=== PATIENT | female | born 1950 | race Caucasian/White ===

== ENCOUNTER 2019-10-09 10:27 | Outpatient (RCR) | payer MEDICARE, OTHER, SELFPAY | END 2019-10-31 00:01 | LOC: LAB 10:27 | PROVIDERS: Family Provider Internal Medicine; Visit Provider Nurse Practitioner Family | DX: D64.9 Anemia, unspecified (principal); E87.6 Hypokalemia; E11.8 Type 2 diabetes mellitus with unspecified complications | CPT/HCPCS: 36415; 80048; 83036; 85025 ==

== ENCOUNTER 2020-07-13 03:04 | Inpatient (IN) | payer MEDICARE, MEDICAID, SELFPAY ==
[2020-07-13] VITALS (9 sets, daily range): BP systolic 126–186; BP diastolic 63–96; PULSE 57–89; RESP 16–20; TEMP 36.6–37; O2SAT 94–99; BMI 26.9
--- NOTE | 2020-07-13 03:09 | CTR_ITS ---
PROCEDURE INFORMATION: Exam: CT Head Without Contrast Exam date and time: 07/13/2020 3:44 AM Age: 70 years old Clinical indication: Altered mental status/memory loss; Confusion or disorientation TECHNIQUE: Imaging protocol: Computed tomography of the head without contrast. Radiation optimization: All CT scans at this facility use at least one of these dose optimization techniques: automated exposure control; mA and/or kV adjustment per patient size (includes targeted exams where dose is matched to clinical indication); or iterative reconstruction. COMPARISON: CT head wo con* [id number] 06/04/2019 2:54 PM RADIATION DOSE METRICS: Total DLP (mGy-cm): 1687.36 FINDINGS: Brain: Continued patchy low density in the cerebral white matter bilaterally consistent with chronic ischemic changes. 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 Old lacunar infarct in the area of the posterior right caudate nucleus evident since previously. Interval appearance of the old lacunar infarct in the left julia. Continued presence of 2 small foci of encephalomalacia in the left occipital lobe. Very small old lacunar infarct in the right cerebellar hemisphere still suspected despite motion artifacts through this area. Questionable interval maturation of an old lacunar infarct in the right thalamus and appearance of a very small old lacunar infarct in the left thalamus. No suggestion of edema in the brain. Continued enlargement of the supratentorial subarachnoid spaces. Still no apparent acute hemorrhage. Ventricles: Continued enlargement of the 3rd and lateral ventricles. Fourth ventricle still within normal limits in size. Bones/joints: Still no skull fracture. Sinuses: Slight mucosal thickening in a few paranasal sinuses. Interval appearance of the possible very small mucous retention cyst in the right frontoethmoidal recess. Still no air-fluid levels. Mastoid air cells: No interval mastoid disease. Vasculature: Prominent bilateral ICA calcifications still present. Soft tissues: Unremarkable. CT/CT head wo con* [id number] IMPRESSION: 1. No apparent acute disease. Interval appearance of some of the numerous foci of old ischemia. Cerebral atrophy again evident. 2. Prominent bilateral ICA calcifications again evident. Other findings detailed above. Radiation Dose CTDIVOL = (mGy): DLP = 1687.36 (mGy-cm)
--- NOTE | 2020-07-13 03:09 | XRR_ITS ---
PROCEDURE INFORMATION: Exam: XR Chest, 1 View Exam date and time: 07/13/2020 3:41 AM Age: 70 years old Clinical indication: Other: Altered mental status TECHNIQUE: Imaging protocol: XR of the chest Views: 1 view. COMPARISON: CR Chest 1 [place] [id number] 06/04/2019 2:31 PM FINDINGS: Lungs: Interval area of increased density behind the elevated right hemidiaphragm suggesting right lower lobe atelectasis. No apparent consolidation. Pleural space: Still no pneumothorax or obvious pleural fluid. Heart/Mediastinum: Still no cardiomegaly. 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 Vasculature: Continued aortic elongation. Diaphragm: Interval worsening of the elevation of the right hemidiaphragm. Bones/joints: Median sternotomy again evident. Diffuse osteopenia still conceivable. Old left rib fractures still likely. No visible acute fracture. XR/XR chest 1V portable [id number] IMPRESSION: 1. Interval worsening of the right hemidiaphragm elevation probably related to the interval right basilar density suggestive of atelectasis. No significant change elsewhere. 2. 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 Other findings detailed above.
--- NOTE | 2020-07-13 03:10 | ECG_ITS ---
[facility] Test Date: 2020-07-13 Pat Name: Alida Parker Department: Room: Gender: Female Supervisory Historian: : 1950 Requested By: Stacey Brown Order Number: [id number] Webster MD: Mojgan Ferrell M.D. Measurements Intervals [place] Rate: 90 P: 54 VA: 179 QRS: 31 QRSD: 85 T: 110 QT: 378 QTc: 464 Interpretive Statements SINUS RHYTHM NONSPECIFIC ST & T-WAVE ABNORMALITY Compared to ECG 06/04/2019 20:14:38 No significant changes Electronically Signed On 07-13-2020 16:21:06 CDT by Mojgan Ferrell M.D. [id number]
--- NOTE | 2020-07-13 03:16 | ED_ITS ---
Documented by User: Stacey Tatum 07/13/20 22:33 HPI - Altered Mental Status General: Chief Complaint: Altered Mental Status Stated Complaint: AMS Time Seen by Provider: 07/13/20 03:04 Source: EMS Mode of arrival: EMS Limitations: altered mental status History of Present Illness: HPI narrative: Mrs. Parker is a nice 70-year-old female who comes in via EMS with report of altered mental status. EMS relates that the patient has had a gradual decline in her mentation throughout the day and then approximately 30 minutes prior to arrival here she had an episode where she was nearly unresponsive for about 30 minutes. Since that time the patient is gradually improved to the point she is answering some questions at this time but appears confused. The long term nurse reports this is a change from her baseline. The patient denies any complaints of pain or illness at this time. Review of Systems General: Reports: ROS unobtainable due to mental status [facility] ED PFSH: Medical History (Updated 07/13/20 @ 15:29 by Bladimir Gay MD) Alzheimers disease Arthritis ASHD (arteriosclerotic heart disease) CAD (coronary artery disease) Diabetic neuropathy GERD (gastroesophageal reflux disease) History of stroke HTN (hypertension) with goal to be determined Hyperlipidemia Intracranial vascular disease PAD (peripheral artery disease) Sleep apnea Vascular dementia Surgical History (Updated 07/13/20 @ 15:19 by Bladimir Gay MD) S/P CABG (coronary artery bypass graft) S/P cholecystectomy S/P hysterectomy Family History Other Diabetes Social History Smoking and tobacco status: former smoker Physical Exam Const: COMMON NORMALS: no acute distress and alert GENERAL APPEARANCE: cooperative and lethargic ORIENTATION/CONSCIOUSNESS: Yes lethargic HENMT: COMMON NORMALS: normocephalic, atraumatic, external ears normal, EAC's normal and Normal external nose present HEAD & SCALP: normal to inspection, normocephalic and atraumatic FACE & SINUS: normal facial exam and face symmetric NOSE: Normal external nose present and Normal nares present EXTERNAL EAR: Yes external ears normal EXTERNAL AUDITORY CANAL: EAC's normal MOUTH: Normal oral and palatal mucosa present, lip normal and tongue normal Eye: COMMON NORMALS: Equal, round and reactive pupils present and conjunctivae normal GENERAL EYE: appearance normal, both eyes and all related structures ALIGNMENT: Yes alignment normal PERIORBITAL: periorbital findings normal EYELID: eyelids normal CONJUNCTIVA: Yes conjunctivae normal SCLERA: sclerae normal PUPIL: Yes Equal, round and reactive pupils present Neck/C-Spine: COMMON NORMALS: full ROM, no lymphadenopathy, supple, no meningeal signs and no JVD GENERAL: Yes normal visual inspection and Yes trachea midline Chest: COMMONS NORMALS: normal inspection of the chest and normal palpation of entire chest wall Resp: COMMON NORMALS: normal respiratory effort, No retractions, No use of accessory muscles and clear to auscultation bilaterally EFFORT & INSPECTION: Yes able to speak in complete sentences and Yes symmetric chest movement AUSCULTATION: clear to auscultation bilaterally, no crackles, no rales, no rhonchi and no wheezes Cardio: COMMON NORMALS: no JVD, regular rate, regular rhythm, S1 normal heart sound present and S2 normal heart sound present RATE: regular rate RHYTHM: regular rhythm HEART SOUNDS: S1 normal heart sound present, S2 normal heart sound present, no click, no gallops, no murmurs and no rubs GI: COMMON NORMALS: Soft to palpation and No hepatosplenomegaly present PALPATION: Yes Soft to palpation, No Tenderness to palpation present (GI), No Guarding due to palpation present (GI), No Rigid due to palpation, Yes No hepatosplenomegaly present, No Hernia present, No Palpable mass present and No Pulsatile mass present : COMMON NORMALS: Yes no CVA tenderness BLADDER/KIDNEY EXAM: Yes no CVA tenderness EXTERNAL FEMALE EXAM: No Hernia present Back/Pelvis: COMMON NORMALS: no CVA tenderness, thoracic and lumbar spine normal to inspection, no thoracic nor lumbar tenderness and thoraco-lumbar ROM normal Extremity: COMMON NORMALS: normal to inspection, full ROM, capillary refill normal, no joint enlargement, no clubbing, cyanosis or edema and no calf tenderness Neuro: KAVON COMA SCALE: document GCS findings Kavon coma scale eye opening: Spontaneous Kavon coma scale verbal response: Confused Kavon coma scale motor response: Obey commands Kavon coma scale total score: 14 COMMON NORMALS: CN's II-XII intact bilaterally, moves all extremities, no focal motor deficits and no sensory deficits noted SENSORIUM/ORIENTATION: Yes alert and Yes lethargic MENINGEAL SIGNS: Yes no meningeal signs Skin: COMMON NORMALS: no rashes or lesions noted, turgor normal, no jaundice, no petechiae and no mottling GENERAL SKIN EXAM: no rashes or lesions noted and turgor normal Course Vital Signs: Vital signs: Vital Signs Temperature 97.8 F 07/16/20 04:00 Pulse Rate 84 07/16/20 04:00 Respiratory Rate 21 H 07/16/20 04:00 Blood Pressure 193/83 07/16/20 05:57 Pulse Oximetry 97 07/16/20 04:00 MDM - Altered Mental Status Lab Data: Attestation: I reviewed the patient's lab results. Labs: Lab Results 07/13/20 07/13/20 07/13/20 Range/Units 03:00 03:00 03:00 WBC 21.8 H (4.0-10.0) 10^3/ uL RBC 4.60 (4.1-5.3) 10^6/u L Hgb 12.8 (11.5-15.3) g/dL Hct 41.7 (37.0-47.0) % MCV 90.7 (81-99) fL MCH 27.8 L (28.0-34.0) pg MCHC 30.7 (30.0-36.0) g/dL RDW 13.6 (12.1-15.1) % Plt Count 174 (130-400) 10^3/c mm MPV 10.8 H (7.4-10.4) fL Neut % (Auto) 85.7 % Lymph % (Auto) 9.0 % Dewitt % (Auto) 4.4 % Eos % (Auto) 0.0 % Baso % (Auto) 0.3 % Neut # (Auto) 18.69 H (1.8-7.7) 10^3/u L Lymph # (Auto) 2.0 (0.8-4.8) 10^3/u L Dewitt # (Auto) 1.0 H (0.2-0.9) 10^3/u L Eos # (Auto) 0.0 (0.0-0.8) 10^3/u L Baso # (Auto) 0.1 (0.0-0.1) 10^3/u L Nucleated RBC % (a uto) 0 % Nucleated RBCs # 0.0 /100WBC PT 13.20 (12.1-14.9) SECO NDS INR 0.97 (0.8-1.2) Specimen Type Sample Site ABG pH (7.35-7.45) ABG pCO2 (35-45) mmHg ABG pO2 (80.0-100.0) mmH g ABG HCO3 (22-26) mmol/L ABG Base Excess (-2.0-2.0) mmol/ L Goldy Test Hematocrit (37-47) % O2 Delivery Device FiO2 % Traveling Construction Superintendent ID Sodium 139 (136-145) mmol/L Potassium 5.7 H (3.5-5.1) mmol/L Chloride 104 (98-107) mmol/L Carbon Dioxide 25 (22-29) mmol/L Anion Gap 15.7 (5-19) BUN 36 H (8-23) mg/dL Creatinine 1.6 H (0.5-0.9) mg/dL GFR Calculation 31.9 L (90-130) mL/min Glucose 199 H (65-115) mg/dL Calculated Osmolal ity 291 (285-295) mOsm/k g Lactic Acid (0.5-2.2) mmol/L Calcium 9.5 (8.5-10.5) mg/dL Magnesium 2.0 (1.7-2.3) mg/dL Total Bilirubin 0.4 (0.15-1.2) mg/dL AST 11 (0-32) U/L ALT 8 (0-33) U/L Alkaline Phosphata se 69 (35-105) IU/L Troponin T Baselin e (0-10) ng/L NT-Pro-B Natriuret Pep 3578 H (0-125) pg/mL Total Protein 6.3 L (6.6-8.7) g/dL Albumin 3.4 L (3.5-5.2) g/dL Globulin 2.9 (1.3-4.6) g/dL Lipase 15 (13-60) U/L Urine Color (Yellow) Urine Appearance (CLEAR) Urine pH (5-7) Ur Specific Gravit y (1.005-1.030) Urine Protein (Negative) Urine Glucose (UA) (Normal) Urine Ketones (Negative) Urine Blood (Negative) Urine Nitrate (Negative) Urine Bilirubin (Negative) Urine Urobilinogen (Negative) mg/dL Ur Leukocyte Guillermina ase (Negative) Urine RBC (0-2) /hpf Urine WBC (0-5) /hpf Ur Squamous Epith Cells (0-5) /hpf Amorphous Sediment Urine Bacteria (NONE) /hpf Serum Ketones Negative (Negative) Influenza Type A A g (Negative) Influenza Type B A g (Negative) SARS-CoV-2 Ag (Rap id) (Negative) 07/13/20 07/13/20 07/13/20 Range/Units 03:00 03:25 03:41 WBC (4.0-10.0) 10^3/ uL RBC (4.1-5.3) 10^6/u L Hgb (11.5-15.3) g/dL Hct (37.0-47.0) % MCV (81-99) fL MCH (28.0-34.0) pg MCHC (30.0-36.0) g/dL RDW (12.1-15.1) % Plt Count (130-400) 10^3/c mm MPV (7.4-10.4) fL Neut % (Auto) % Lymph % (Auto) % Dewitt % (Auto) % Eos % (Auto) % Baso % (Auto) % Neut # (Auto) (1.8-7.7) 10^3/u L Lymph # (Auto) (0.8-4.8) 10^3/u L Dewitt # (Auto) (0.2-0.9) 10^3/u L Eos # (Auto) (0.0-0.8) 10^3/u L Baso # (Auto) (0.0-0.1) 10^3/u L Nucleated RBC % (a uto) % Nucleated RBCs # /100WBC PT (12.1-14.9) SECO NDS INR (0.8-1.2) Specimen Type Arterial Sample Site Brachial, left ABG pH 7.41 (7.35-7.45) ABG pCO2 43.6 (35-45) mmHg ABG pO2 69.7 L (80.0-100.0) mmH g ABG HCO3 27.6 H (22-26) mmol/L ABG Base Excess 2.4 H (-2.0-2.0) mmol/ L Goldy Test Pos Hematocrit 41.4 (37-47) % O2 Delivery Device None FiO2 21.0 % Traveling Construction Superintendent ID [id number] Sodium (136-145) mmol/L Potassium (3.5-5.1) mmol/L Chloride (98-107) mmol/L Carbon Dioxide (22-29) mmol/L Anion Gap (5-19) BUN (8-23) mg/dL Creatinine (0.5-0.9) mg/dL GFR Calculation (90-130) mL/min Glucose (65-115) mg/dL Calculated Osmolal ity (285-295) mOsm/k g Lactic Acid (0.5-2.2) mmol/L Calcium (8.5-10.5) mg/dL Magnesium (1.7-2.3) mg/dL Total Bilirubin (0.15-1.2) mg/dL AST (0-32) U/L ALT (0-33) U/L Alkaline Phosphata se (35-105) IU/L Troponin T Baselin e 34 H (0-10) ng/L NT-Pro-B Natriuret Pep (0-125) pg/mL Total Protein (6.6-8.7) g/dL Albumin (3.5-5.2) g/dL Globulin (1.3-4.6) g/dL Lipase (13-60) U/L Urine Color (Yellow) Urine Appearance (CLEAR) Urine pH (5-7) Ur Specific Gravit y (1.005-1.030) Urine Protein (Negative) Urine Glucose (UA) (Normal) Urine Ketones (Negative) Urine Blood (Negative) Urine Nitrate (Negative) Urine Bilirubin (Negative) Urine Urobilinogen (Negative) mg/dL Ur Leukocyte Guillermina ase (Negative) Urine RBC (0-2) /hpf Urine WBC (0-5) /hpf Ur Squamous Epith Cells (0-5) /hpf Amorphous Sediment Urine Bacteria (NONE) /hpf Serum Ketones (Negative) Influenza Type A A g (Negative) Influenza Type B A g (Negative) SARS-CoV-2 Ag (Rap id) Negative (Negative) 07/13/20 07/13/20 07/13/20 Range/Units 03:49 03:49 06:25 WBC (4.0-10.0) 10^3/ uL RBC (4.1-5.3) 10^6/u L Hgb (11.5-15.3) g/dL Hct (37.0-47.0) % MCV (81-99) fL MCH (28.0-34.0) pg MCHC (30.0-36.0) g/dL RDW (12.1-15.1) % Plt Count (130-400) 10^3/c mm MPV (7.4-10.4) fL Neut % (Auto) % Lymph % (Auto) % Dewitt % (Auto) % Eos % (Auto) % Baso % (Auto) % Neut # (Auto) (1.8-7.7) 10^3/u L Lymph # (Auto) (0.8-4.8) 10^3/u L Dewitt # (Auto) (0.2-0.9) 10^3/u L Eos # (Auto) (0.0-0.8) 10^3/u L Baso # (Auto) (0.0-0.1) 10^3/u L Nucleated RBC % (a uto) % Nucleated RBCs # /100WBC PT (12.1-14.9) SECO NDS INR (0.8-1.2) Specimen Type Sample Site ABG pH (7.35-7.45) ABG pCO2 (35-45) mmHg ABG pO2 (80.0-100.0) mmH g ABG HCO3 (22-26) mmol/L ABG Base Excess (-2.0-2.0) mmol/ L Goldy Test Hematocrit (37-47) % O2 Delivery Device FiO2 % Traveling Construction Superintendent ID Sodium (136-145) mmol/L Potassium (3.5-5.1) mmol/L Chloride (98-107) mmol/L Carbon Dioxide (22-29) mmol/L Anion Gap (5-19) BUN (8-23) mg/dL Creatinine (0.5-0.9) mg/dL GFR Calculation (90-130) mL/min Glucose (65-115) mg/dL Calculated Osmolal ity (285-295) mOsm/k g Lactic Acid 2.1 (0.5-2.2) mmol/L Calcium (8.5-10.5) mg/dL Magnesium (1.7-2.3) mg/dL Total Bilirubin (0.15-1.2) mg/dL AST (0-32) U/L ALT (0-33) U/L Alkaline Phosphata se (35-105) IU/L Troponin T Baselin e (0-10) ng/L NT-Pro-B Natriuret Pep (0-125) pg/mL Total Protein (6.6-8.7) g/dL Albumin (3.5-5.2) g/dL Globulin (1.3-4.6) g/dL Lipase (13-60) U/L Urine Color Straw (Yellow) Urine Appearance Cloudy (CLEAR) Urine pH 7 (5-7) Ur Specific Gravit y 1.010 (1.005-1.030) Urine Protein 1+ H (Negative) Urine Glucose (UA) Norm (Normal) Urine Ketones 1+ H (Negative) Urine Blood 3+ H (Negative) Urine Nitrate Negative (Negative) Urine Bilirubin Neg (Negative) Urine Urobilinogen Norm (Negative) mg/dL Ur Leukocyte Guillermina ase 2+ H (Negative) Urine RBC 5-10 H (0-2) /hpf Urine WBC 15-25 H (0-5) /hpf Ur Squamous Epith Cells None (0-5) /hpf Amorphous Sediment Not Reportable Urine Bacteria 3+ H (NONE) /hpf Serum Ketones (Negative) Influenza Type A A g Negative (Negative) Influenza Type B A g Negative (Negative) SARS-CoV-2 Ag (Rap id) (Negative) Imaging Data^: CXR: Attestation: I personally reviewed and interpreted this imaging study as follows: My impression: Elevated right hemidiaphragm, otherwise no acute findings. EKG Data^: EKG 1: Attestation: I personally reviewed and interpreted this EKG as follows: EKG interpretation date: 07/13/20 EKG interpretation time: 03:18 Interpretation: Normal sinus rhythm at 90 beats a minute, no blocks, normal intervals, normal axis, no acute ST-T wave changes. Discharge Plan Discharge Patient Disposition: Admitted As Inpatient Admit Provider: Bladimir Gay Clinical Impression: Cystitis, Sepsis Condition: Stable Referrals: Cindy Fisher MD [Primary Care Provider] - Discharge Date/Time: 07/13/20 08:40 Sign Out Sign Out Data: Patient Sign Out occurred on 07/13/20 at 06:43. Patient's care was discussed, and care was transferred from to Shady Bush DO. Coding Level of Care Code ED Washer Off for Chg Fwd Exam Comprehensive Documented by User: Shady Bush DO 07/16/20 06:51 HPI - Altered Mental Status General: Chief Complaint: Altered Mental Status Stated Complaint: AMS Time Seen by Provider: 07/13/20 03:04 PFSH ED PFSH: Medical History (Updated 07/13/20 @ 15:29 by Bladimir Gay MD) Alzheimers disease Arthritis ASHD (arteriosclerotic heart disease) CAD (coronary artery disease) Diabetic neuropathy GERD (gastroesophageal reflux disease) History of stroke HTN (hypertension) with goal to be determined Hyperlipidemia Intracranial vascular disease PAD (peripheral artery disease) Sleep apnea Vascular dementia Surgical History (Updated 07/13/20 @ 15:19 by Bladimir Gay MD) S/P CABG (coronary artery bypass graft) S/P cholecystectomy S/P hysterectomy Family History Other Diabetes Social History Smoking and tobacco status: former smoker Course Vital Signs: Vital signs: Vital Signs Temperature 97.8 F 07/16/20 04:00 Pulse Rate 84 07/16/20 04:00 Respiratory Rate 21 H 07/16/20 04:00 Blood Pressure 193/83 07/16/20 05:57 Pulse Oximetry 97 07/16/20 04:00 MDM - Altered Mental Status MDM Narrative: Medical decision making narrative: Altered mental status still not answering questions or understanding very well. Rapid antigen COVID was negative Dr. Gay asked for a PCR and to keep the patient in isolation for now. Started on IV antibiotics for a cystitis. Lab Data: Labs: Lab Results 07/13/20 07/13/20 07/13/20 Range/Units 03:00 03:00 03:00 WBC 21.8 H (4.0-10.0) 10^3/ uL RBC 4.60 (4.1-5.3) 10^6/u L Hgb 12.8 (11.5-15.3) g/dL Hct 41.7 (37.0-47.0) % MCV 90.7 (81-99) fL MCH 27.8 L (28.0-34.0) pg MCHC 30.7 (30.0-36.0) g/dL RDW 13.6 (12.1-15.1) % Plt Count 174 (130-400) 10^3/c mm MPV 10.8 H (7.4-10.4) fL Neut % (Auto) 85.7 % Lymph % (Auto) 9.0 % Dewitt % (Auto) 4.4 % Eos % (Auto) 0.0 % Baso % (Auto) 0.3 % Neut # (Auto) 18.69 H (1.8-7.7) 10^3/u L Lymph # (Auto) 2.0 (0.8-4.8) 10^3/u L Dewitt # (Auto) 1.0 H (0.2-0.9) 10^3/u L Eos # (Auto) 0.0 (0.0-0.8) 10^3/u L Baso # (Auto) 0.1 (0.0-0.1) 10^3/u L Nucleated RBC % (a uto) 0 % Nucleated RBCs # 0.0 /100WBC PT 13.20 (12.1-14.9) SECO NDS INR 0.97 (0.8-1.2) Specimen Type Sample Site ABG pH (7.35-7.45) ABG pCO2 (35-45) mmHg ABG pO2 (80.0-100.0) mmH g ABG HCO3 (22-26) mmol/L ABG Base Excess (-2.0-2.0) mmol/ L Goldy Test Hematocrit (37-47) % O2 Delivery Device FiO2 % Traveling Construction Superintendent ID Sodium 139 (136-145) mmol/L Potassium 5.7 H (3.5-5.1) mmol/L Chloride 104 (98-107) mmol/L Carbon Dioxide 25 (22-29) mmol/L Anion Gap 15.7 (5-19) BUN 36 H (8-23) mg/dL Creatinine 1.6 H (0.5-0.9) mg/dL GFR Calculation 31.9 L (90-130) mL/min Glucose 199 H (65-115) mg/dL Calculated Osmolal ity 291 (285-295) mOsm/k g Lactic Acid (0.5-2.2) mmol/L Calcium 9.5 (8.5-10.5) mg/dL Magnesium 2.0 (1.7-2.3) mg/dL Total Bilirubin 0.4 (0.15-1.2) mg/dL AST 11 (0-32) U/L ALT 8 (0-33) U/L Alkaline Phosphata se 69 (35-105) IU/L Troponin T Baselin e (0-10) ng/L NT-Pro-B Natriuret Pep 3578 H (0-125) pg/mL Total Protein 6.3 L (6.6-8.7) g/dL Albumin 3.4 L (3.5-5.2) g/dL Globulin 2.9 (1.3-4.6) g/dL Lipase 15 (13-60) U/L Urine Color (Yellow) Urine Appearance (CLEAR) Urine pH (5-7) Ur Specific Gravit y (1.005-1.030) Urine Protein (Negative) Urine Glucose (UA) (Normal) Urine Ketones (Negative) Urine Blood (Negative) Urine Nitrate (Negative) Urine Bilirubin (Negative) Urine Urobilinogen (Negative) mg/dL Ur Leukocyte Guillermina ase (Negative) Urine RBC (0-2) /hpf Urine WBC (0-5) /hpf Ur Squamous Epith Cells (0-5) /hpf Amorphous Sediment Urine Bacteria (NONE) /hpf Serum Ketones Negative (Negative) Influenza Type A A g (Negative) Influenza Type B A g (Negative) SARS-CoV-2 Ag (Rap id) (Negative) 07/13/20 07/13/20 07/13/20 Range/Units 03:00 03:25 03:41 WBC (4.0-10.0) 10^3/ uL RBC (4.1-5.3) 10^6/u L Hgb (11.5-15.3) g/dL Hct (37.0-47.0) % MCV (81-99) fL MCH (28.0-34.0) pg MCHC (30.0-36.0) g/dL RDW (12.1-15.1) % Plt Count (130-400) 10^3/c mm MPV (7.4-10.4) fL Neut % (Auto) % Lymph % (Auto) % Dewitt % (Auto) % Eos % (Auto) % Baso % (Auto) % Neut # (Auto) (1.8-7.7) 10^3/u L Lymph # (Auto) (0.8-4.8) 10^3/u L Dewitt # (Auto) (0.2-0.9) 10^3/u L Eos # (Auto) (0.0-0.8) 10^3/u L Baso # (Auto) (0.0-0.1) 10^3/u L Nucleated RBC % (a uto) % Nucleated RBCs # /100WBC PT (12.1-14.9) SECO NDS INR (0.8-1.2) Specimen Type Arterial Sample Site Brachial, left ABG pH 7.41 (7.35-7.45) ABG pCO2 43.6 (35-45) mmHg ABG pO2 69.7 L (80.0-100.0) mmH g ABG HCO3 27.6 H (22-26) mmol/L ABG Base Excess 2.4 H (-2.0-2.0) mmol/ L Goldy Test Pos Hematocrit 41.4 (37-47) % O2 Delivery Device None FiO2 21.0 % Traveling Construction Superintendent ID [id number] Sodium (136-145) mmol/L Potassium (3.5-5.1) mmol/L Chloride (98-107) mmol/L Carbon Dioxide (22-29) mmol/L Anion Gap (5-19) BUN (8-23) mg/dL Creatinine (0.5-0.9) mg/dL GFR Calculation (90-130) mL/min Glucose (65-115) mg/dL Calculated Osmolal ity (285-295) mOsm/k g Lactic Acid (0.5-2.2) mmol/L Calcium (8.5-10.5) mg/dL Magnesium (1.7-2.3) mg/dL Total Bilirubin (0.15-1.2) mg/dL AST (0-32) U/L ALT (0-33) U/L Alkaline Phosphata se (35-105) IU/L Troponin T Baselin e 34 H (0-10) ng/L NT-Pro-B Natriuret Pep (0-125) pg/mL Total Protein (6.6-8.7) g/dL Albumin (3.5-5.2) g/dL Globulin (1.3-4.6) g/dL Lipase (13-60) U/L Urine Color (Yellow) Urine Appearance (CLEAR) Urine pH (5-7) Ur Specific Gravit y (1.005-1.030) Urine Protein (Negative) Urine Glucose (UA) (Normal) Urine Ketones (Negative) Urine Blood (Negative) Urine Nitrate (Negative) Urine Bilirubin (Negative) Urine Urobilinogen (Negative) mg/dL Ur Leukocyte Guillermina ase (Negative) Urine RBC (0-2) /hpf Urine WBC (0-5) /hpf Ur Squamous Epith Cells (0-5) /hpf Amorphous Sediment Urine Bacteria (NONE) /hpf Serum Ketones (Negative) Influenza Type A A g (Negative) Influenza Type B A g (Negative) SARS-CoV-2 Ag (Rap id) Negative (Negative) 07/13/20 07/13/20 07/13/20 Range/Units 03:49 03:49 06:25 WBC (4.0-10.0) 10^3/ uL RBC (4.1-5.3) 10^6/u L Hgb (11.5-15.3) g/dL Hct (37.0-47.0) % MCV (81-99) fL MCH (28.0-34.0) pg MCHC (30.0-36.0) g/dL RDW (12.1-15.1) % Plt Count (130-400) 10^3/c mm MPV (7.4-10.4) fL Neut % (Auto) % Lymph % (Auto) % Dewitt % (Auto) % Eos % (Auto) % Baso % (Auto) % Neut # (Auto) (1.8-7.7) 10^3/u L Lymph # (Auto) (0.8-4.8) 10^3/u L Dewitt # (Auto) (0.2-0.9) 10^3/u L Eos # (Auto) (0.0-0.8) 10^3/u L Baso # (Auto) (0.0-0.1) 10^3/u L Nucleated RBC % (a uto) % Nucleated RBCs # /100WBC PT (12.1-14.9) SECO NDS INR (0.8-1.2) Specimen Type Sample Site ABG pH (7.35-7.45) ABG pCO2 (35-45) mmHg ABG pO2 (80.0-100.0) mmH g ABG HCO3 (22-26) mmol/L ABG Base Excess (-2.0-2.0) mmol/ L Goldy Test Hematocrit (37-47) % O2 Delivery Device FiO2 % Traveling Construction Superintendent ID Sodium (136-145) mmol/L Potassium (3.5-5.1) mmol/L Chloride (98-107) mmol/L Carbon Dioxide (22-29) mmol/L Anion Gap (5-19) BUN (8-23) mg/dL Creatinine (0.5-0.9) mg/dL GFR Calculation (90-130) mL/min Glucose (65-115) mg/dL Calculated Osmolal ity (285-295) mOsm/k g Lactic Acid 2.1 (0.5-2.2) mmol/L Calcium (8.5-10.5) mg/dL Magnesium (1.7-2.3) mg/dL Total Bilirubin (0.15-1.2) mg/dL AST (0-32) U/L ALT (0-33) U/L Alkaline Phosphata se (35-105) IU/L Troponin T Baselin e (0-10) ng/L NT-Pro-B Natriuret Pep (0-125) pg/mL Total Protein (6.6-8.7) g/dL Albumin (3.5-5.2) g/dL Globulin (1.3-4.6) g/dL Lipase (13-60) U/L Urine Color Straw (Yellow) Urine Appearance Cloudy (CLEAR) Urine pH 7 (5-7) Ur Specific Gravit y 1.010 (1.005-1.030) Urine Protein 1+ H (Negative) Urine Glucose (UA) Norm (Normal) Urine Ketones 1+ H (Negative) Urine Blood 3+ H (Negative) Urine Nitrate Negative (Negative) Urine Bilirubin Neg (Negative) Urine Urobilinogen Norm (Negative) mg/dL Ur Leukocyte Guillermina ase 2+ H (Negative) Urine RBC 5-10 H (0-2) /hpf Urine WBC 15-25 H (0-5) /hpf Ur Squamous Epith Cells None (0-5) /hpf Amorphous Sediment Not Reportable Urine Bacteria 3+ H (NONE) /hpf Serum Ketones (Negative) Influenza Type A A g Negative (Negative) Influenza Type B A g Negative (Negative) SARS-CoV-2 Ag (Rap id) (Negative) Discharge Plan Discharge Patient Disposition: Admitted As Inpatient Admit Provider: Bladimir Gay Clinical Impression: Cystitis, Sepsis Condition: Stable Referrals: Cindy Fisher MD [Primary Care Provider] - Discharge Date/Time: 07/13/20 08:40 Sign Out Sign Out Data: Patient Sign Out occurred on 07/13/20 at 06:43. Patient's care was discussed, and care was transferred from to Shady Bush DO. Coding Level of Care Code ED Washer Off for Chg Fwd Exam Comprehensive
[2020-07-13 03:27] LABS: Basophils # 0.1 10^3/uL (0.0-0.1); Basophils % 0.3 %; Hematocrit 41.7 % (37.0-47.0); Hemoglobin 12.8 g/dL (11.5-15.3); Mean Corpuscular HGB Conc 30.7 g/dL (30.0-36.0); Mean Corpuscular Hemoglobin 27.8 pg (28.0-34.0); Mean Corpuscular Volume 90.7 fL (81-99); Mean Platelet Volume 10.8 fL (7.4-10.4); Monocytes % 4.4 %; Neutrophils # 18.69 10^3/uL (1.8-7.7); Neutrophils % 85.7 %; Nucleated Red Blood Cells % 0 %; Platelet Count 174 10^3/cmm (130-400); Red Cell Distribution Width 13.6 % (12.1-15.1); White Blood Count 21.8 10^3/uL (4.0-10.0)
[2020-07-13 03:34] LABS: ABG PCO2 43.6 mmHg (35-45); ABG PH Result 7.41 (7.35-7.45); Arterial Blood Gas Hematocrit 41.4 % (37-47); Base Excess ABG 2.4 mmol/L (-2.0-2.0); Blood Gas Allen Test Pos; Blood Gas Sample Site Brachial, left; Blood Gas Sample Type Arterial; HCO3 ABG 27.6 mmol/L (22-26); PO2 ABG 69.7 mmHg (80.0-100.0)
[2020-07-13 03:42] LABS: INR 0.97 (0.8-1.2)
[2020-07-13 03:43] LABS: Ketone (Acetest) Serum Negative (Negative)
[2020-07-13 03:48] LABS: Troponin(5th) Baseline 34 ng/L (0-10)
[2020-07-13 03:56] LABS: Alanine Aminotransferase 8 U/L (0-33); Albumin Level 3.4 g/dL (3.5-5.2); Alkaline Phosphatase 69 IU/L (35-105); Anion Gap 15.7 (5-19); Aspartate Amino Transferase 11 U/L (0-32); Blood Urea Nitrogen 36 mg/dL (8-23); Calcium 9.5 mg/dL (8.5-10.5); Carbon Dioxide 25 mmol/L (22-29); Chloride 104 mmol/L (98-107); Globulin 2.9 g/dL (1.3-4.6); Glomerular Filtration Rate 31.9 mL/min (90-130); Glucose 199 mg/dL (65-115); Lipase 15 U/L (13-60); NT Pro B Type Natriuretic Pept 3578 pg/mL (0-125); Osmolality Calculated 291 mOsm/kg (285-295); Potassium 5.7 mmol/L (3.5-5.1); Sodium 139 mmol/L (136-145); Total Bilirubin 0.4 mg/dL (0.15-1.2); Total Protein 6.3 g/dL (6.6-8.7)
[2020-07-13 04:15] LABS: Lactic Sepsis W/Reflex 2.1 mmol/L (0.5-2.2)
[2020-07-13 04:16] LABS: SARS Covid-2 Antigen Negative (Negative)
[2020-07-13] MEDS: sodium chloride 0.9% 1,000 ML 999 ML IV ×2 (05:15→06:59)
[2020-07-13 05:43] LABS: Reflex Lactate Order REFLEX LACTIC ORDERD
[2020-07-13 07:00] LABS: Influenza A by IFA Negative (Negative); Influenza B by IFA Negative (Negative)
[2020-07-13 07:12] LABS: Bilirubin Urine Neg (Negative); Blood Urine 3+ (Negative); Glucose Urine UA Norm (Normal); Ketones Urine 1+ (Negative); Nitrate Urine Negative (Negative); Protein Urine 1+ (Negative); Urine Appearance Cloudy (CLEAR); Urine Color Straw (Yellow); Urobilinogen Urine Norm (Negative); pH Urine 7 (5-7)
[2020-07-13 07:13] LABS: Add Urine Culture? Yes; Bacteria Urine 3+ /hpf; Leukocyte Esterase Urine 2+ (Negative); WBC Urine 15-25 /hpf (0-5)
[2020-07-13] MEDS: insulin regular-human 100 units/1 mL 3 UNIT IVP (07:19)
[2020-07-13] MEDS: calcium gluconate 0.1 gm/mL 10% SDV 10mL 1 GM IVP (07:21)
[2020-07-13] MEDS: sodium chloride 0.9% 1,000 ML 100 ML IV ×3 (07:23→17:17)
--- NOTE | 2020-07-13 07:35 | CTR_ITS ---
PROCEDURE INFORMATION: Exam: CT Abdomen And Pelvis Without Contrast Exam date and time: 07/13/2020 7:48 AM Age: 70 years old Clinical indication: Abdominal pain; Additional info: UTI, R/O obstructive uropathy TECHNIQUE: Imaging protocol: Computed tomography of the abdomen and pelvis without contrast. Radiation optimization: All CT scans at this facility use at least one of these dose optimization techniques: automated exposure control; mA and/or kV adjustment per patient size (includes targeted exams where dose is matched to clinical indication); or iterative reconstruction. COMPARISON: US Renal Kidney Structu* [id number] 09/05/2018 6:31 AM RADIATION DOSE METRICS: Total DLP (mGy-cm): 1479.34 FINDINGS: Limitations: The study is technically limited by motion artifact. Lungs: There is bibasilar atelectasis. Pleural space: Trace right pleural effusion. Liver: The liver is homogeneous and is not enlarged. Gallbladder and bile ducts: The gallbladder appears absent. No biliary ductal dilatation. Pancreas: No gross pancreatic abnormality. Spleen: Calcified granuloma in a nonenlarged spleen. Adrenals: The right adrenal gland is normal. There is a 2.2 cm indeterminate left adrenal mass with nonspecific attenuation measurements. Kidneys and ureters: There is bilateral nephrolithiasis. No ureteral calculus. No hydronephrosis or hydroureter. There is bilateral renal parenchymal scarring. The left kidney is globally atrophic. Stomach and bowel: No bowel obstruction. There is colonic diverticulosis without diverticulitis. Appendix: No evidence of appendicitis. Intraperitoneal space: No ascites or pneumoperitoneum. Vasculature: There is coronary artery disease. Lymph nodes: No pathologically enlarged lymph nodes. Bladder: The urinary bladder is decompressed with a Rodas catheter. Reproductive: Unremarkable as visualized. Bones/joints: There is disc degeneration with vacuum disc at L5-S1. Soft tissues: No acute soft tissue abnormality. CT/CT abdomen pelvis wo con [id number] IMPRESSION: 1. Bilateral nephrolithiasis without urinary tract obstruction. 2. Nonspecific left adrenal mass. Radiation Dose CTDIVOL = (mGy): DLP = 1479.34 (mGy-cm)
--- NOTE | 2020-07-13 09:10 | ECG_ITS ---
[facility] Test Date: 2020-07-13 Pat Name: Alida Parker Department: Room: 260 Gender: Female [employer]ic: : 1950 Requested By: Stacey Brown Order Number: [id number] Eleanor MD: Mojgan Ferrell M.D. Measurements Intervals [place] Rate: 64 P: 23 IA: 153 QRS: 35 QRSD: 80 T: 95 QT: 423 QTc: 439 Interpretive Statements SINUS RHYTHM NONSPECIFIC T-WAVE ABNORMALITY Compared to ECG 07/13/2020 03:18:56 No significant changes Electronically Signed On 07-13-2020 16:26:03 CDT by Mojgan Ferrell M.D. [email or web address]
[2020-07-13 11:27] LABS: Lactic Sepsis W/Reflex 1.5 mmol/L (0.5-2.2)
[2020-07-13 11:29] LABS: Troponin(5th) Baseline 33 ng/L (0-10)
[2020-07-13 11:35] LABS: D Dimer 1.49 ug/mIFEU (0-0.59)
[2020-07-13 11:40] LABS: Procalcitonin 42.08 ng/mL (0-0.5); Thyroid Stimulating Hormone 1.29 uIU/mL (0.27-4.20)
[2020-07-13 11:43] LABS: Erythrocyte Sedimentation Rate 35 mm/hr (0-15)
[2020-07-13 11:51] LABS: Alanine Aminotransferase 7 U/L (0-33); Albumin Level 3.1 g/dL (3.5-5.2); Alkaline Phosphatase 58 IU/L (35-105); Anion Gap 12.4 (5-19); Aspartate Amino Transferase 9 U/L (0-32); Blood Urea Nitrogen 33 mg/dL (8-23); C Reactive Protein 50.9 mg/L (0.0-4.9); Calcium 8.6 mg/dL (8.5-10.5); Carbon Dioxide 26 mmol/L (22-29); Chloride 108 mmol/L (98-107); Ferritin 144 ng/mL (15-150); Globulin 2.5 g/dL (1.3-4.6); Glomerular Filtration Rate 40.5 mL/min (90-130); Glucose 116 mg/dL (65-115); Lactate Dehydrogenase 132 U/L (135-214); Osmolality Calculated 292 mOsm/kg (285-295); Potassium 4.4 mmol/L (3.5-5.1); Sodium 142 mmol/L (136-145); Total Bilirubin 0.4 mg/dL (0.15-1.2); Total Protein 5.6 g/dL (6.6-8.7)
--- NOTE | 2020-07-13 11:52 | PC.NURSE ---
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 Patient has no complaint of pain at this time. She has 200mls of cloudy yellow urine. Irrigated her cath with 40mls of sterile NS, determined that the cath was properly placed. Notifies of urine output.
[2020-07-13 11:58] LABS: Estmated Average Glucose 123; Hemoglobin A1C 5.9 % (4.0-6.0)
[2020-07-13 12:09] LABS: Fibrinogen 448 mg/dL (174-498)
[2020-07-13 13:25] LABS: Troponin 5 2HR 31.69 ng/L (0-10)
[2020-07-13 13:26] LABS: Troponin 5 2HR Delta -1.31 ABS# (0-10)
--- NOTE | 2020-07-13 13:44 | ECG_ITS ---
[facility] Test Date: 2020-07-13 Pat Name: Alida Parker Department: Room: 260 Gender: Female Spreader: : 1950 Requested By: Bladimir Gay Order Number: [id number] Webster MD: Mojgan Ferrell M.D. Measurements Intervals [place] Rate: 54 P: 35 VA: 149 QRS: 20 QRSD: 84 T: 115 QT: 430 QTc: 411 Interpretive Statements SINUS BRADYCARDIA NONSPECIFIC ST & T-WAVE ABNORMALITY Compared to ECG 07/13/2020 09:53:29 Sinus rhythm no longer present T-wave abnormality still present Electronically Signed On 07-13-2020 16:26:19 CDT by Mojgan Ferrell M.D. [id number]
--- NOTE | 2020-07-13 15:06 | P.HP_ITS ---
Providers/Chief Complaint Admitting Physician: Bladimir Gay MD Primary Care Provider: Cindy Fisher MD Chief Complaint: AMS History of Present Illness Alida Parker is a 70 year old female with a past medical history of insulin- dependent type 2 diabetes mellitus, hypertension, hyperlipidemia, history of left-sided CVA with right residual weakness, has a history of CAD, history of CABGx4, diastolic heart failure, CKD stage III, hypertension, dementia, hypothyroidism, who presents to [facility] from [facility] due to confusion. Currently patient is alert oriented x1, she does not really provide a history, she does follow some commands such as squeezing my fingers, wiggling her toes, but beyond that does not answer any questions. Most of the history was obtained by skilled nursing staff, they tell me that at the skilled nursing, she was admitted roughly a year ago for a stroke, they believe that she has right upper right lower extremity weakness, she has been working with physical therapy, currently ambulating with a walker, is usually alert oriented x3, has mild dementia, overall doing well. But this morning she started to look pale, diaphoretic, acting more confused, not responding appropriately, so they called EMS. No recent fevers, no hypotensive episodes, no recent UTIs, no recent antibiotic use, no recent pneumonias. There is possible exposure to COVID-19 at the skilled nursing, as a few workers have tested positive. Review of patient's medical records, show that she has had a few hospital admissions for UTIs and altered mental status, urine cultures have grown E. coli pansensitive, Proteus Review of Systems General: Reports: ROS unobtainable due to medical condition Medications/Allergies Home Medications Medication Instructions Recorded Confirmed Last Taken Type aspirin 81 mg tablet,delayed 81 mg PO DAILY tab 11/21/19 07/13/20 07/12/20 History release clopidogrel 75 mg tablet 75 mg PO DAILY tab 11/21/19 07/13/20 07/12/20 History levothyroxine 88 mcg capsule 88 mcg PO DAILY cap 11/21/19 07/13/20 07/12/20 History lisinopril 10 mg tablet 10 mg PO DAILY tab 11/21/19 07/13/20 Unknown History nitroglycerin 0.4 mg sublingual 0.4 mg SUBLINGUAL DIRECTED PRN 11/21/19 07/13/20 Unknown History tablet tab bisacodyl 10 mg rectal suppository 10 mg ME QDAY PRN 11/23/19 07/13/20 Unknown History gabapentin 300 mg capsule 300 mg PO QDAY 11/23/19 07/13/20 07/12/20 History potassium chloride 20 mEq 20 meq PO DAILY 11/23/19 07/13/20 07/12/20 History tablet,extended release simvastatin 40 mg tablet 40 mg PO BEDTIME 11/23/19 07/13/20 07/11/20 History sodium phosphates 19 gram-7 118 ml ME ONCE PRN 11/23/19 07/13/20 Unknown History gram/118 mL enema Saccharomyces boulardii [Probiotic 250 mg PO BID 07/13/20 07/13/20 07/12/20 History (S.boulardii)] acetaminophen 650 mg PO DAILY PRN 07/13/20 07/13/20 Unknown History amino acids-protein hydrolys See Rx Instructions .ROUTE .COMPLEX 07/13/2007/12/20 History [Pro-Stat AWC] insulin aspart U-100 [Novolog See Rx Instructions .ROUTE .COMPLEX 07/13/20 07/13/20 07/12/20 History Flexpen U-100 Insulin] insulin glargine [Lantus Solostar See Rx Instructions .ROUTE .COMPLEX 07/13/20 07/13/20 07/12/20 History U-100 Insulin] magnesium hydroxide [Milk of 400 mg PO DAILY PRN 07/13/20 07/13/20 Unknown History Magnesia] magnesium sulfate (bulk) [Epsom 1 applic TOPICAL BID 07/13/20 07/13/20 Unknown History Salt] sennosides 8.6 mg PO BID 07/13/20 07/13/20 07/12/20 History Allergies Allergy/AdvReac Type Severity Reaction Status Date / Time acetaminophen [From Tylox] Allergy Unknown Unknown Verified 07/13/20 03:12 oxycodone [From Tylox] Allergy Unknown Unknown Verified 07/13/20 03:12 Penicillins Allergy Unknown Unknown Verified 07/13/20 03:12 PFSH Acute PFSH: Medical History (Updated 07/13/20 @ 15:29 by Bladimir Gay MD) Alzheimers disease Arthritis ASHD (arteriosclerotic heart disease) CAD (coronary artery disease) Diabetic neuropathy GERD (gastroesophageal reflux disease) History of stroke HTN (hypertension) with goal to be determined Hyperlipidemia Intracranial vascular disease PAD (peripheral artery disease) Sleep apnea Vascular dementia Surgical History (Updated 07/13/20 @ 15:19 by Bladimir Gay MD) S/P CABG (coronary artery bypass graft) S/P cholecystectomy S/P hysterectomy Family History Other Diabetes Social History Smoking and tobacco status: former smoker Vitals/I&O/Wt Last Vital Signs Temp 97.8 F 07/13/20 12:00 Pulse 58 L 07/13/20 12:00 Resp 17 07/13/20 12:00 BP 158/78 07/13/20 12:00 Pulse Ox 96 07/13/20 14:38 07/13/20 07/13/20 07/13/20 06:59 14:59 22:59 Intake Total 1000 / 1000 Balance 1000 / 1000 Weight last 48 hrs Weight 66.723 kg Physical Exam Const: COMMON NORMALS: no acute distress EXAM LIMITATIONS: altered mental status GENERAL APPEARANCE: cooperative ORIENTATION/CONSCIOUSNESS: Yes awake and Yes confused; not oriented to person, not oriented to place and not oriented to time Eye: COMMON NORMALS: Equal, round and reactive pupils present Lymph: LYMPHATIC: no lymphadenopathy noted Chest: COMMONS NORMALS: normal inspection of the chest Resp: COMMON NORMALS: normal respiratory effort, No retractions, No use of accessory muscles and clear to auscultation bilaterally Cardio: COMMON NORMALS: no JVD, regular rate, regular rhythm, S1 normal heart sound present and S2 normal heart sound present GI: COMMON NORMALS: Normal to inspection, nondistended, normoactive bowel sounds present, Soft to palpation, non-tender and No hepatosplenomegaly present : COMMON NORMALS: Yes no CVA tenderness Extremity: COMMON NORMALS: normal to inspection, capillary refill normal, no clubbing, cyanosis or edema and no pedal edema Neuro: SENSORIUM/ORIENTATION: Yes alert, No oriented to person, No oriented to place and No oriented to time OTHER: Follow some commands such as squeezing my fingers, wiggling her toes, right upper extremity seems more weak than left upper extremity, right lower extremity seems more weak than left lower extremity Urinary Catheter Management^: Rodas: Cath Placed During This Visit: yes Reason for Continuing Indwelling Catheter: Acute Urinary Retention or Obstruction Urinary Catheter Date of Insertion: 07/13/20 Urinary Catheter Time of Insertion: 05:49 Data : 07/13/20 03:00 07/13/20 10:53 Micro: Microbiology 07/13/20 10:53 Blood Culture - Preliminary Blood SPECIMEN COLLECTED 07/13/20 06:25 Blood Culture - Preliminary Blood SPECIMEN COLLECTED A&P Assessment and plan (1) Acute encephalopathy: -Rapid COVID negative -RT-PCR pending -UA positive for ketones, blood, leukocyte Estrace, WBCs, bacteria -Abdominal CT shows bilateral nephrolithiasis without urinary tract obstruction -Chest x-ray shows right hemidiaphragmatic elevation, no focal pneumonia -Head CT shows prominent bilateral ICA calcifications, some numerous foci of old ischemia, cerebral atrophy -White blood cell count 21.8, ESR 35, neutrophil count 18.619, d-dimer 1.49, BUN 33, creatinine 1.3, LDH 132 -Baseline troponin 33, 120-minute 31.69, down to 1.31, BNP 3578 -Pro-Agusto 42.08 -TSH 1.29 -Likely secondary to UTI, but cannot rule out embolic stroke given CT head findings, other possibilities could include COVID-19 Plan -Continue COVID-19 precautions until RT-PCR comes back positive -Given that she is a skilled nursing resident start Primaxin for UTI -Start gentle IV hydration given history of diastolic heart failure -Continue telemetry monitoring, monitor for A. fib -Continue Plavix, atorvastatin -Neurochecks, aspiration precautions, seizure precautions -Follow blood cultures, urine cultures -I think the likelihood of a pulmonary embolism is quite low, will consider doing a CT angiogram based on clinical progress -For now continue Lovenox for DVT prophylaxis -Patient is a DNR AND Status: Acute (2) History of stroke: Status: Acute (3) Hyperlipidemia: Status: Acute (4) S/P CABG (coronary artery bypass graft): Status: Acute (5) Cystitis: Status: Acute (6) HTN (hypertension) with goal to be determined: Status: Acute (7) CAD (coronary artery disease): Status: Acute (8) DARNELL (acute kidney injury): Status: Acute (9) Elevated troponin: Status: Acute (10) Type 2 diabetes mellitus: Status: Acute Attestations Medical Necessity Statement*: Patient requires hospitalization for acute encephalopathy secondary to UTI, inpatient, greater than 2 midnights Coding Level of Care Code Acute Distribution Center Manager for Chg 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
[2020-07-13 17:32] LABS: Troponin 5 6HR 30.44 ng/L (0-10)
[2020-07-13] MEDS: enoxaparin 40 mg/0.4 mL Syringe SUBCUT (17:40)
--- NOTE | 2020-07-13 17:44 | PC.NURSE ---
Bs 168 at 1730
[2020-07-13 17:46] LABS: Troponin 5 6HR Delta -2.56 ng/L (0-12)
[2020-07-13] MEDS: sodium chloride 0.9% 1,000 ML 75 ML IV (19:01)
[2020-07-13 21:38] LABS: Glucose Point of Care 168 mg/dL (70-110)
[2020-07-13 21:38] LABS: Glucose Point of Care 121 mg/dL (70-110)
[2020-07-14] VITALS: BP 190/60; PULSE 72; RESP 26; TEMP 37.1; O2SAT 95
[2020-07-14 04:00] VITALS: BP 194/82; PULSE 68; RESP 24; TEMP 37.2; O2SAT 94
[2020-07-14 05:39] LABS: INR 0.92 (0.8-1.2)
[2020-07-14 05:48] LABS: Alanine Aminotransferase 7 U/L (0-33); Albumin Level 2.8 g/dL (3.5-5.2); Alkaline Phosphatase 62 IU/L (35-105); Aspartate Amino Transferase 15 U/L (0-32); Blood Urea Nitrogen 25 mg/dL (8-23); Calcium 8.6 mg/dL (8.5-10.5); Carbon Dioxide 22 mmol/L (22-29); Chloride 110 mmol/L (98-107); Globulin 3.1 g/dL (1.3-4.6); Glomerular Filtration Rate 61.9 mL/min (90-130); Glucose 116 mg/dL (65-115); Osmolality Calculated 288 mOsm/kg (285-295); Sodium 140 mmol/L (136-145); Total Bilirubin 0.4 mg/dL (0.15-1.2); Total Protein 5.9 g/dL (6.6-8.7)
[2020-07-14 06:29] LABS: Anion Gap 12.2 (5-19); Potassium 4.2 mmol/L (3.5-5.1)
[2020-07-14] MEDS: hyDRALAzine 20 mg/mL INJ 1 mL 10 MG IVP (06:38)
[2020-07-14 06:59] LABS: Glucose Point of Care 115 mg/dL (70-110)
[2020-07-14 07:37] LABS: Chol HDL Ratio 3.33 mg/dL (0.0-4.40); Cholesterol 130 mg/dL (0-200); HDL Cholesterol 39 mg/dL (60-100); LDL Cholesterol Calculated 62 mg/dL (50-129); LDL HDL Ratio 1.59 RATIO (0.00-3.22); Magnesium 1.8 mg/dL (1.7-2.3); Phosphorus 2.5 mg/dL (2.5-4.5); Triglycerides 143 mg/dL (0-150)
[2020-07-14 08:00] VITALS: BP 183/70; PULSE 80; RESP 18; TEMP 37.2; O2SAT 98
[2020-07-14] MEDS: citalopram 20 mg Tablet 10 MG PO (08:15)
[2020-07-14] MEDS: clopidogrel 75 mg Tablet PO (08:16)
[2020-07-14] MEDS: potassium chloride ER 10 mEq Tablet 20 MEQ PO (08:16)
[2020-07-14] MEDS: lisinopril 10 mg Tablet PO (08:16)
[2020-07-14] MEDS: levothyroxine 88 mcg Tablet PO (08:16)
[2020-07-14] MEDS: atorvastatin 40 mg Tablet 10 MG PO (08:16)
[2020-07-14] MEDS: gabapentin 300 mg Capsule PO (08:16)
[2020-07-14 08:23] LABS: Basophils % 0.3 %; Eosinophils # 0.1 10^3/uL (0.0-0.8); Hematocrit 36.6 % (37.0-47.0); Hemoglobin 11.4 g/dL (11.5-15.3); Lymphocytes # 2.2 10^3/uL (0.8-4.8); Lymphocytes % 18.9 %; Mean Corpuscular HGB Conc 31.1 g/dL (30.0-36.0); Mean Corpuscular Hemoglobin 28.5 pg (28.0-34.0); Mean Corpuscular Volume 91.5 fL (81-99); Mean Platelet Volume 10.5 fL (7.4-10.4); Monocytes # 0.6 10^3/uL (0.2-0.9); Monocytes % 5.5 %; Neutrophils % 73.6 %; Nucleated Red Blood Cells % 0 %; Platelet Count 135 10^3/cmm (130-400); Red Cell Distribution Width 13.5 % (12.1-15.1); White Blood Count 11.4 10^3/uL (4.0-10.0)
[2020-07-14 10:37] LABS: Coronavirus Lab Test PTC Negative
[2020-07-14] MEDS: sodium chloride 0.9% 1,000 ML 75 ML IV (10:41)
[2020-07-14] MEDS: amlodipine 10 mg Tablet PO (10:43)
[2020-07-14 11:03] VITALS: BP 189/75; PULSE 78; RESP 18; TEMP 37.1; O2SAT 96
[2020-07-14 15:49] VITALS: BP 165/76; PULSE 68; RESP 18; TEMP 36.4; O2SAT 95
[2020-07-14 16:22] LABS: Glucose Point of Care 134 mg/dL (70-110)
[2020-07-14 16:22] LABS: Glucose Point of Care 118 mg/dL (70-110)
[2020-07-14] MEDS: enoxaparin 40 mg/0.4 mL Syringe SUBCUT (17:10)
[2020-07-14] MEDS: lisinopril 20 mg Tablet PO (17:10)
--- NOTE | 2020-07-14 18:47 | PC.NURSE ---
Updated Екатерина at [facility] who will update patient's who lives at [place].
--- NOTE | 2020-07-14 18:58 | PC.NURSE ---
report to Isa SMITH
[2020-07-14 19:40] VITALS: BP 152/74; PULSE 73; RESP 19; TEMP 36.6; O2SAT 99
[2020-07-14 20:41] LABS: Glucose Point of Care 149 mg/dL (70-110)
--- NOTE | 2020-07-14 22:57 | PM.PN ---
Subjective Subjective: Interval history: This morning patient is much more alert, keeps saying no to questions, not sure if she understands answers, she does have a right upper extremity flexion contracture, weakness on the right side, which is chronic for her, she does squeeze my fingers bilaterally, she does follow me around the room, she is alert, but does not answer questions Vitals/I&O/Wt Last Vital Signs Temp 97.8 F 07/14/20 19:40 Pulse 73 07/14/20 19:40 Resp 19 H 07/14/20 19:40 BP 152/74 07/14/20 19:40 Pulse Ox 99 07/14/20 19:40 07/14/20 07/14/20 07/14/20 06:59 14:59 22:59 Intake Total 1580 / 1580 240 / 1820 Output Total 828 / 1538 900 / 900 Balance -828 / -48 1580 / 1580 -660 / 920 Weight last 48 hrs Weight 66.723 kg Physical Exam Const: COMMON NORMALS: no acute distress and alert ORIENTATION/CONSCIOUSNESS: not oriented to person, not oriented to place and not oriented to time HENMT: COMMON NORMALS: normocephalic HEAD & SCALP: normocephalic Neck/C-Spine: COMMON NORMALS: no JVD Resp: COMMON NORMALS: normal respiratory effort, No retractions, No use of accessory muscles and clear to auscultation bilaterally AUSCULTATION: clear to auscultation bilaterally Cardio: COMMON NORMALS: no JVD, regular rate, regular rhythm, S1 normal heart sound present and S2 normal heart sound present RATE: regular rate RHYTHM: regular rhythm HEART SOUNDS: S1 normal heart sound present and S2 normal heart sound present GI: COMMON NORMALS: Normal to inspection, nondistended, normoactive bowel sounds present, Soft to palpation, non-tender, No hepatosplenomegaly present, no masses and no bruits PALPATION: Yes Soft to palpation and Yes No hepatosplenomegaly present Extremity: COMMON NORMALS: capillary refill normal, no clubbing, cyanosis or edema, no calf tenderness and no pedal edema Neuro: SENSORIUM/ORIENTATION: Yes alert, No oriented to person, No oriented to place and No oriented to time OTHER: Follow some commands such as squeezing my fingers, wiggling her toes, right upper extremity seems more weak than left upper extremity, right lower extremity seems more weak than left lower extremity, right upper extremity flexion contracture Urinary Catheter Management^: Rodas: Cath Placed During This Visit: yes Reason for Continuing Indwelling Catheter: Chronic Indwelling Urinary Catheter on Admission Urinary Catheter Date of Insertion: 07/13/20 Urinary Catheter Time of Insertion: 05:49 Data : 07/17/20 04:33 07/17/20 04:33 Micro: Microbiology 07/13/20 13:40 MRSA Culture - Final Nose 07/13/20 10:53 Blood Culture - Preliminary Blood NEGATIVE TO DATE 07/13/20 06:25 Urine Culture - Preliminary Urine,Clean Catch 07/13/20 06:25 Blood Culture - Preliminary Blood NEGATIVE TO DATE A&P Assessment and plan (1) Acute encephalopathy: -Rapid COVID negative -RT-PCR COVID negative -UA positive for ketones, blood, leukocyte Estrace, WBCs, bacteria -Abdominal CT shows bilateral nephrolithiasis without urinary tract obstruction -Chest x-ray shows right hemidiaphragmatic elevation, no focal pneumonia -Head CT shows prominent bilateral ICA calcifications, some numerous foci of old ischemia, cerebral atrophy -White blood cell count 21.8, ESR 35, neutrophil count 18.619, d-dimer 1.49, BUN 33, creatinine 1.3, LDH 132 -Baseline troponin 33, 120-minute 31.69, down to 1.31, BNP 3578 -Pro-Agusto 42.08 -TSH 1.29 -Likely secondary to UTI, but cannot rule out embolic stroke given CT head findings, other possibilities could include COVID-19 Plan -Given that she is a senior living resident continue Primaxin for UTI -Start gentle IV hydration given history of diastolic heart failure -Continue telemetry monitoring, monitor for A. fib -Continue Plavix, atorvastatin -Neurochecks, aspiration precautions, seizure precautions -We will order carotid ultrasound, cardiac echo -If her mentation does not improve by tomorrow consider ordering an MRI -Follow blood cultures, urine cultures -I think the likelihood of a pulmonary embolism is quite low, will consider doing a CT angiogram based on clinical progress -For now continue Lovenox for DVT prophylaxis -Patient is a DNR AND Status: Acute (2) History of stroke: Status: Acute (3) Hyperlipidemia: Status: Acute (4) S/P CABG (coronary artery bypass graft): Status: Acute (5) Cystitis: Status: Acute (6) HTN (hypertension) with goal to be determined: Status: Acute (7) CAD (coronary artery disease): Status: Acute (8) DARNELL (acute kidney injury): Status: Acute (9) Elevated troponin: Status: Acute (10) Type 2 diabetes mellitus: Status: Acute Attestations Medical Necessity Statement*: Patient requires hospitalization for altered mental status secondary to UTI Coding Level of Care Code Acute Stratigraphy Teacher for [facility] Fwd Exam Detailed Diagnoses Acute encephalopathy G93.40 History of stroke Z86.73 Hyperlipidemia E78.5 S/P CABG (coronary artery bypass graft) Z95.1 Cystitis N30.90 HTN (hypertension) with goal to be determined I10 CAD (coronary artery disease) I25.10 DARNELL (acute kidney injury) N17.9 Elevated troponin R79.89 Type 2 diabetes mellitus E11.9
[2020-07-15] VITALS (7 sets, daily range): BP systolic 178–192; BP diastolic 70–90; PULSE 70–87; RESP 18–24; TEMP 36.6–37; O2SAT 94–97
[2020-07-15] MEDS: sodium chloride 0.9% 1,000 ML 75 ML IV ×2 (00:45→15:04)
[2020-07-15 05:54] LABS: Basophils % 0.4 %; Eosinophils # 0.1 10^3/uL (0.0-0.8); Eosinophils % 1.4 %; Hematocrit 39.2 % (37.0-47.0); Hemoglobin 11.9 g/dL (11.5-15.3); Lymphocytes % 20.7 %; Mean Corpuscular HGB Conc 30.4 g/dL (30.0-36.0); Mean Corpuscular Hemoglobin 27.5 pg (28.0-34.0); Mean Corpuscular Volume 90.7 fL (81-99); Mean Platelet Volume 11.1 fL (7.4-10.4); Monocytes # 0.7 10^3/uL (0.2-0.9); Monocytes % 7.4 %; Neutrophils # 6.69 10^3/uL (1.8-7.7); Neutrophils % 69.3 %; Nucleated Red Blood Cells % 0 %; Platelet Count 141 10^3/cmm (130-400); Red Blood Count 4.32 10^6/uL (4.1-5.3); Red Cell Distribution Width 13.2 % (12.1-15.1); White Blood Count 9.7 10^3/uL (4.0-10.0)
[2020-07-15 06:15] LABS: Alanine Aminotransferase 7 U/L (0-33); Albumin Level 3.1 g/dL (3.5-5.2); Alkaline Phosphatase 65 IU/L (35-105); Anion Gap 13.1 (5-19); Aspartate Amino Transferase 10 U/L (0-32); Blood Urea Nitrogen 23 mg/dL (8-23); Calcium 8.3 mg/dL (8.5-10.5); Carbon Dioxide 24 mmol/L (22-29); Chloride 108 mmol/L (98-107); Globulin 3.2 g/dL (1.3-4.6); Glomerular Filtration Rate 82.7 mL/min (90-130); Glucose 120 mg/dL (65-115); Osmolality Calculated 290 mOsm/kg (285-295); Potassium 4.1 mmol/L (3.5-5.1); Sodium 141 mmol/L (136-145); Total Bilirubin 0.5 mg/dL (0.15-1.2); Total Protein 6.3 g/dL (6.6-8.7)
[2020-07-15 06:16] LABS: Magnesium 1.6 mg/dL (1.7-2.3); Phosphorus 2.2 mg/dL (2.5-4.5)
[2020-07-15 06:46] LABS: Glucose Point of Care 128 mg/dL (70-110)
[2020-07-15] MEDS: gabapentin 300 mg Capsule PO (09:06)
[2020-07-15] MEDS: clopidogrel 75 mg Tablet PO (09:06)
[2020-07-15] MEDS: atorvastatin 40 mg Tablet 10 MG PO (09:06)
[2020-07-15] MEDS: lisinopril 20 mg Tablet PO ×2 (09:06→18:12)
[2020-07-15] MEDS: potassium chloride ER 10 mEq Tablet 20 MEQ PO (09:06)
[2020-07-15] MEDS: levothyroxine 88 mcg Tablet PO (09:06)
[2020-07-15] MEDS: citalopram 20 mg Tablet 10 MG PO (09:06)
[2020-07-15] MEDS: amlodipine 10 mg Tablet PO (09:07)
[2020-07-15 11:08] LABS: Glucose Point of Care 110 mg/dL (70-110)
--- NOTE | 2020-07-15 12:07 | PM.PN ---
Subjective Subjective: Interval history: No acute events overnight, patient is able to open eyes to calling name, nods no when asked if she is in pain, attempts to answer questions, however limited by aphasia Medications: Reviewed: Yes Vitals/I&O/Wt Last Vital Signs Temp 97.8 F 07/15/20 08:00 Pulse 72 07/15/20 08:00 Resp 24 H 07/15/20 08:00 BP 188/72 07/15/20 08:00 Pulse Ox 96 07/15/20 08:00 07/14/20 07/15/20 07/15/20 22:59 06:59 14:59 Intake Total 340 / 1920 1100 / 3020 Output Total 900 / 900 Balance -560 / 1020 1100 / 2120 Physical Exam Narrative: EXAM NARRATIVE: GEN: Awake, alert, aphasic CVS: S1S2 N RS: CTA B/L Abd: Soft, nt/nd , bs+ PROCESS MOLD TECHNICIAN: R sided hemiparesis and apahasia Urinary Catheter Management^: Rodas: Cath Placed During This Visit: yes Reason for Continuing Indwelling Catheter: Chronic Indwelling Urinary Catheter on Admission Urinary Catheter Date of Insertion: 07/13/20 Urinary Catheter Time of Insertion: 05:49 Data : 07/15/20 05:10 07/15/20 05:10 Micro: Microbiology 07/13/20 06:25 Urine Culture - Final Urine,Clean Catch 07/13/20 13:40 MRSA Culture - Final Nose 07/13/20 10:53 Blood Culture - Preliminary Blood NEGATIVE TO DATE A&P Assessment and plan (1) Acute encephalopathy: -Rapid COVID negative -RT-PCR COVID negative -UA positive for ketones, blood, leukocyte Estrace, WBCs, bacteria -Abdominal CT shows bilateral nephrolithiasis without urinary tract obstruction -Chest x-ray shows right hemidiaphragmatic elevation, no focal pneumonia -Head CT shows prominent bilateral ICA calcifications, some numerous foci of old ischemia, cerebral atrophy -leukocytosis resolved -Pro-Agusto 42.08 -TSH 1.29 -Likely secondary to UTI, but cannot rule out embolic stroke given CT head findings - continue Primaxin for UTI -no acute events on telemetry -Continue Plavix, atorvastatin -Neurochecks, aspiration precautions, seizure precautions -pending carotid ultrasound, cardiac echo Status: Acute (2) History of stroke: Status: Acute (3) Hyperlipidemia: Status: Acute (4) S/P CABG (coronary artery bypass graft): Status: Acute (5) Cystitis: Status: Acute (6) HTN (hypertension) with goal to be determined: Status: Acute (7) CAD (coronary artery disease): Status: Acute (8) DARNELL (acute kidney injury): Status: Acute (9) Elevated troponin: Status: Acute (10) Type 2 diabetes mellitus: Status: Acute Attestations Medical Necessity Statement*: awaiting results of pending carotid doppler and echocardiogram for further planning Coding Level of Care Code Acute Pre Parole Counseling Aide for Chg 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
[2020-07-15 17:11] LABS: Glucose Point of Care 120 mg/dL (70-110)
[2020-07-15] MEDS: enoxaparin 40 mg/0.4 mL Syringe SUBCUT (18:12)
--- NOTE | 2020-07-15 22:59 | USCV_ITS ---
Alida Parker Age: 70 Gender: F : 1950 Exam Date: 07/15/2020 06:26 Ordering Phys: Bladimir Gay MD Technologist: Tamiko Escudero Exam Location: [facility] [place] Indication: AMS BP: 192 / 90 HR: 70 Rhythm: Sinus Technical Quality: Adequate MEASUREMENTS (Male / Female) Normal Values 2D ECHO LV Diastolic Diameter PLAX 4.6 cm 4.2 - 5.9 / 3.9 - 5.3 cm LV Systolic Diameter PLAX 2.9 cm LV Chamber Size 3.3 cm IVS Diastolic Thickness 1.0 cm 0.6 - 1.0 / 0.6 - 0.9 cm IVS Systolic Thickness 1.8 cm LVPW Diastolic Thickness 1.3 cm 0.6 - 1.0 / 0.6 - 0.9 cm LVPW Systolic Thickness 1.5 cm RV Chamber Size 1.8 cm LVOT Diameter 2.0 cm LV Ejection Fraction 2D Teich 67.9 % LV Ejection Fraction MOD 2C 72.2 % LV Ejection Fraction 2C AL 72.0 % LA Diameter 3.8 cm LA Width 3.2 cm LA Height 4.2 cm RA Width 2.5 cm RA Height 3.3 cm Aorta at Sinotubular Diameter 2.8 cm M-MODE LV Diastolic Diameter MM 4.9 cm 4.2 - 5.9 / 3.9 - 5.3 cm LV Systolic Diameter MM 3.8 cm LV Ejection Fraction MM Teich 47.0 % IVS Diastolic Thickness MM 1.3 cm 0.6 - 1.0 / 0.6 - 0.9 cm IVS Systolic Thickness MM 1.6 cm LVPW Diastolic Thickness MM 1.0 cm 0.6 - 1.0 / 0.6 - 0.9 cm LVPW Systolic Thickness MM 1.9 cm RV Diastolic Diameter MM 1.3 cm Aortic Annulus Diameter 3.6 cm LA Ao Ratio MM 1.0 MV E Point Septal Separation 0.4 cm DOPPLER AV Peak Velocity 106.0 cm/s LVOT Peak Velocity 79.0 cm/s AV Area Cont Eq vti 2.3 cm squared AV Area Cont Eq pk 2.4 cm squared MV Area PHT 3.5 cm squared Mitral E to A Ratio 0.7 MV E' Velocity 9.0 cm/s Mitral E to MV E' Ratio 8.7 Mitral E to LV E' Lateral Ratio 7.9 Mitral E to LV E' Septal Ratio 9.7 TR Peak Velocity 140.1 cm/s TR Peak Gradient 7.9 mmHg TR Mean Velocity 107.0 cm/s TR Mean Gradient 4.9 mmHg TR Velocity Time Integral 39.2 cm TV Peak E Velocity 73.0 cm/s Right Atrial Pressure 3.0 mmHg Pulmonary Artery Systolic Pressu 10.9 mmHg PV Peak Velocity 80.0 cm/s RV Acceleration Time 0.1 s RV Ejection Time 0.3 s RV AcT/ET 0.2 FINDINGS Left Ventricle Normal left ventricular cavity size and systolic function. Mild concentric left ventricular hypertrophy. Left ventricular ejection fraction is estimated at 65 %. No diagnostic regional wall motion abnormalities. Right Ventricle Right ventricle not well visualized. Normal right ventricular size and systolic function. Right Atrium Right atrium not well visualized. Left Atrium Normal left atrial size. Mitral Valve Mildly thickened mitral valve. No mitral valve stenosis. Trace mitral valve regurgitation. Aortic Valve Mildly thickened trileaflet aortic valve. No aortic valve stenosis. No aortic valve regurgitation. Tricuspid Valve Structurally normal tricuspid valve. Trace tricuspid valve regurgitation. Pulmonic Valve Pulmonic valve not well visualized. No pulmonary valve regurgitation. Pericardium Echo free space anterior to the right ventricle likely represents a fat pad. Aorta Aorta not well visualized. CONCLUSIONS 1. This is a technically difficult study. 2. Normal left ventricular cavity size and systolic function. Mild concentric left ventricular hypertrophy. Left ventricular ejection fraction is estimated at 65 %. No diagnostic regional wall motion abnormalities. 3. Normal right ventricular size and systolic function. 4. No significant valvular abnormality. 5. No prior similar studies to compare. Melida Chaidez MD (Electronically Signed) Final Date: 15 July 2020 16:08 S
--- NOTE | 2020-07-15 22:59 | USCV_ITS ---
Alida Parker Age: 70 Gender: F : 1950 Exam Date: 07/15/2020 06:06 Ordering Phys: Bladimir Gay MD Technologist: Tamiko Escudero Exam Location: [facility] [place] Indication: AMS Risk Factors: Unknown Previous Vascular Surgery: Unknown Right Brachial BP: / Left Brachial BP: / Right Left Velocity (cm/s) Spectral Plaque Velocity (cm/s) Spectral Plaque Syst/Diast Broadening Syst/Diast Broadening 72.20/ 11.30 Prox CCA 76.70 / 17.20 58.10/ 8.40 Mid CCA 68.70 / 9.30 59.10/ 6.60 Distal CCA 41.40 / 7.30 45.00/ 7.30 Hetro Prox ICA 47.20 / 10.90 148.40/41.30 Mid ICA 47.20 / 10.90 151.50/29.10 Distal ICA 35.60 / 11.60 95.70 ECA 96.50 2.61 ICA/CCA 0.69 Antegrade Vertebral Antegrade 40.70/ 6.50 cm/s 31.90/ 9.50 cm/s Tri Subclavian Tri 126.9 208.7 0 0 FINDINGS Comparison:. 05/21/15. Mild elevation of velocity and plaque right ICA, mild progression since the prior exam. Diffuse bilateral scattered calcified plaque and intimal thickening throughout the common carotid arteries and extending through the bifurcation. Antegrade vertebral arteries. CONCLUSIONS Right ICA stenosis 50-69%. Mild progression of stenois since the prior exam. Left ICA stenosis < 50%. Dr. Alysia Tolbert DO (Electronically Signed) Final Date: 15 July 2020 11:03 S
[2020-07-16] VITALS (7 sets, daily range): BP systolic 141–218; BP diastolic 78–92; PULSE 75–87; RESP 16–24; TEMP 36.5–36.9; O2SAT 96–97
[2020-07-16] MEDS: sodium chloride 0.9% 1,000 ML 75 ML IV (03:19)
[2020-07-16] MEDS: hyDRALAzine 20 mg/mL INJ 1 mL 10 MG IVP (04:22)
[2020-07-16 06:56] LABS: Glucose Point of Care 134 mg/dL (70-110)
[2020-07-16 07:10] LABS: Influenza A by IFA Negative (Negative); Influenza B by IFA Negative (Negative)
--- NOTE | 2020-07-16 07:37 | PC.NURSE ---
I reported high bp and resperations to the nurse Ashley Amezcua 198/82 24r
[2020-07-16] MEDS: amlodipine 10 mg Tablet PO (08:40)
[2020-07-16] MEDS: citalopram 20 mg Tablet 10 MG PO (08:40)
[2020-07-16] MEDS: potassium chloride ER 10 mEq Tablet 20 MEQ PO (08:41)
[2020-07-16] MEDS: levothyroxine 88 mcg Tablet PO (08:41)
[2020-07-16] MEDS: lisinopril 20 mg Tablet PO ×2 (08:41→17:53)
[2020-07-16] MEDS: atorvastatin 40 mg Tablet 10 MG PO (08:41)
[2020-07-16] MEDS: clopidogrel 75 mg Tablet PO (08:41)
[2020-07-16] MEDS: gabapentin 300 mg Capsule PO (08:41)
[2020-07-16 09:19] LABS: Glucose Point of Care 128 mg/dL (70-110)
--- NOTE | 2020-07-16 09:25 | PC.SOCIAL ---
Pg 2 IMM Explained to pt Pg 2 IMM. Provided pt a copy. No questions voiced. Signed, dated, & timed a copy & placed in chart.
[2020-07-16 11:11] LABS: Basophils % 0.3 %; Hematocrit 41.3 % (37.0-47.0); Hemoglobin 13.4 g/dL (11.5-15.3); Lymphocytes # 1.6 10^3/uL (0.8-4.8); Lymphocytes % 12.1 %; Mean Corpuscular HGB Conc 32.4 g/dL (30.0-36.0); Mean Corpuscular Hemoglobin 28.6 pg (28.0-34.0); Mean Corpuscular Volume 88.1 fL (81-99); Mean Platelet Volume 11.6 fL (7.4-10.4); Monocytes # 0.5 10^3/uL (0.2-0.9); Monocytes % 3.7 %; Neutrophils % 82.8 %; Nucleated Red Blood Cells % 0 %; Platelet Count 157 10^3/cmm (130-400); Red Blood Count 4.69 10^6/uL (4.1-5.3); Red Cell Distribution Width 13.4 % (12.1-15.1); White Blood Count 13.3 10^3/uL (4.0-10.0)
[2020-07-16 11:27] LABS: Alanine Aminotransferase 7 U/L (0-33); Albumin Level 3.1 g/dL (3.5-5.2); Alkaline Phosphatase 63 IU/L (35-105); Blood Urea Nitrogen 23 mg/dL (8-23); Calcium 8.2 mg/dL (8.5-10.5); Carbon Dioxide 18 mmol/L (22-29); Chloride 104 mmol/L (98-107); Globulin 3.6 g/dL (1.3-4.6); Glomerular Filtration Rate 70.9 mL/min (90-130); Glucose 159 mg/dL (65-115); Osmolality Calculated 280 mOsm/kg (285-295); Sodium 135 mmol/L (136-145); Total Bilirubin 0.4 mg/dL (0.15-1.2); Total Protein 6.7 g/dL (6.6-8.7)
[2020-07-16 12:00] LABS: Anion Gap 17.3 (5-19); Aspartate Amino Transferase 14 U/L (0-32); Potassium 4.3 mmol/L (3.5-5.1)
[2020-07-16 16:37] LABS: Glucose Point of Care 168 mg/dL (70-110)
--- NOTE | 2020-07-16 16:40 | PM.PN ---
Subjective Subjective: Interval history: This morning BP up to systolic of 220, patient;s mental status marginally better, more alert today, answers yes or no to simple questions which is legible and appropriate, was noted to weakly self feed with a spoon intermittently at breakfast Medications: Reviewed: Yes Vitals/I&O/Wt Last Vital Signs Temp 98.0 F 07/16/20 15:26 Pulse 75 07/16/20 15:26 Resp 18 07/16/20 15:26 BP 156/90 07/16/20 15:26 Pulse Ox 96 07/16/20 15:26 07/16/20 07/16/20 07/16/20 06:59 14:59 22:59 Intake Total 918.75 / 2338.75 220 / 220 Output Total 1100 / 1500 Balance -181.25 / 838.75 220 / 220 Physical Exam Narrative: EXAM NARRATIVE: GEN: Awake, appears more alert compared to yesetrday CVS: S1S2 N RS: CTA B/L Abd: Soft, nt/nd , bs+ 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: grossly unchanged motor strength, aphasia+ Urinary Catheter Management^: Rodas: Cath Placed During This Visit: yes Reason for Continuing Indwelling Catheter: Chronic Indwelling Urinary Catheter on Admission Urinary Catheter Date of Insertion: 07/13/20 Urinary Catheter Time of Insertion: 05:49 Data : 07/16/20 10:22 07/16/20 10:29 A&P Assessment and plan (1) Acute encephalopathy: -Rapid COVID negative -RT-PCR COVID negative -UA positive for ketones, blood, leukocyte Estrace, WBCs, bacteria -Abdominal CT shows bilateral nephrolithiasis without urinary tract obstruction -Chest x-ray shows right hemidiaphragmatic elevation, no focal pneumonia -Head CT shows prominent bilateral ICA calcifications, some numerous foci of old ischemia, cerebral atrophy -leukocytosis resolved -Pro-Agusto 42.08 upon admission -TSH 1.29 - continue Primaxin for UTI, urine cx with no growth to date -no acute events on telemetry Status: Acute (2) History of stroke: patient has a known h/o R side CVA in 2019 since which time she has been at the residential. Ct head shows multiple strokes, multiple foci of old ischemis in various locations which is suspicious for embolic stroke TTE without any vegetations or clots carotid duplex with 50-69% stenosis on right and <50% stenosis on left side Possible that more recent decline in mentation and severity of aphasia may be related to recurrent old infarcts Unable to discuss ALEYDA with patient due to aphasia, uncertain as to her level of understanding, discussed with her who wishes to hold off ant invasive investigations. Given that she is having multiple strokes on ASA and Plavix and possibilituy of embolic events cannot be excluded, i discussed with the patient's the option of trying a combination of antiplatelets and anticoagulants to which he is amenbale. He has been counselled regarding possible side efefcts including hemorrhage and is agreeable to proceed. It is unlikely that swicthing these medications will help recover any lost neurological function but may be helpful in preventing future events. She is a NH resident, does not ambulate much and as such not a high fall risk. Status: Acute (3) Hyperlipidemia: Status: Acute (4) S/P CABG (coronary artery bypass graft): Status: Acute (5) Cystitis: Status: Acute (6) HTN (hypertension) with goal to be determined: Status: Acute (7) CAD (coronary artery disease): Status: Acute (8) DARNELL (acute kidney injury): Status: Acute (9) Elevated troponin: Status: Acute (10) Type 2 diabetes mellitus: Insulin sliding scale Status: Acute Attestations Medical Necessity Statement*: starting anticogulation today, BP control Coding Level of Care Code Acute [employer] for Chg 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
[2020-07-16 16:41] LABS: Glucose Point of Care 151 mg/dL (70-110)
[2020-07-16] MEDS: apixaban 5 mg Tablet 2.5 MG PO (17:53)
[2020-07-16 21:40] LABS: Glucose Point of Care 119 mg/dL (70-110)
[2020-07-16] MEDS: hyDRALAzine 10 mg Tablet PO (22:28)
[2020-07-17 03:33] VITALS: BP 186/72; PULSE 88; RESP 24; TEMP 36.7; O2SAT 96
[2020-07-17 05:19] LABS: Basophils % 0.3 %; Eosinophils % 0.2 %; Hematocrit 41.7 % (37.0-47.0); Hemoglobin 13.1 g/dL (11.5-15.3); Lymphocytes # 2.2 10^3/uL (0.8-4.8); Lymphocytes % 17.2 %; Mean Corpuscular HGB Conc 31.4 g/dL (30.0-36.0); Mean Corpuscular Hemoglobin 27.9 pg (28.0-34.0); Mean Corpuscular Volume 88.9 fL (81-99); Mean Platelet Volume 10.4 fL (7.4-10.4); Monocytes # 0.8 10^3/uL (0.2-0.9); Monocytes % 6.5 %; Neutrophils # 9.43 10^3/uL (1.8-7.7); Neutrophils % 74.7 %; Nucleated Red Blood Cells % 0 %; Platelet Count 190 10^3/cmm (130-400); Red Blood Count 4.69 10^6/uL (4.1-5.3); Red Cell Distribution Width 13.5 % (12.1-15.1); White Blood Count 12.6 10^3/uL (4.0-10.0)
[2020-07-17 05:47] LABS: INR 1.06 (0.8-1.2)
[2020-07-17 05:57] LABS: Alanine Aminotransferase 7 U/L (0-33); Albumin Level 3.2 g/dL (3.5-5.2); Alkaline Phosphatase 69 IU/L (35-105); Anion Gap 15.9 (5-19); Aspartate Amino Transferase 11 U/L (0-32); Blood Urea Nitrogen 25 mg/dL (8-23); Calcium 8.9 mg/dL (8.5-10.5); Carbon Dioxide 21 mmol/L (22-29); Chloride 108 mmol/L (98-107); Globulin 3.4 g/dL (1.3-4.6); Glomerular Filtration Rate 61.9 mL/min (90-130); Glucose 134 mg/dL (65-115); Osmolality Calculated 291 mOsm/kg (285-295); Potassium 3.9 mmol/L (3.5-5.1); Sodium 141 mmol/L (136-145); Total Bilirubin 0.3 mg/dL (0.15-1.2); Total Protein 6.6 g/dL (6.6-8.7)
[2020-07-17 06:39] LABS: Glucose Point of Care 118 mg/dL (70-110)
[2020-07-17 07:56] VITALS: BP 168/88; PULSE 68; RESP 24; TEMP 36.7; O2SAT 94
[2020-07-17] MEDS: atorvastatin 40 mg Tablet 10 MG PO (09:56)
[2020-07-17] MEDS: lisinopril 20 mg Tablet PO (09:56)
[2020-07-17] MEDS: clopidogrel 75 mg Tablet PO (09:56)
[2020-07-17] MEDS: potassium chloride ER 10 mEq Tablet 20 MEQ PO (09:56)
[2020-07-17] MEDS: gabapentin 300 mg Capsule PO (09:56)
[2020-07-17] MEDS: levothyroxine 88 mcg Tablet PO (09:56)
[2020-07-17] MEDS: amlodipine 10 mg Tablet PO (09:56)
[2020-07-17] MEDS: citalopram 20 mg Tablet 10 MG PO (09:56)
[2020-07-17] MEDS: hyDRALAzine 10 mg Tablet PO (09:57)
[2020-07-17] MEDS: apixaban 5 mg Tablet 2.5 MG PO (09:57)
[2020-07-17 10:28] LABS: Glucose Point of Care 127 mg/dL (70-110)
[2020-07-17 11:01] VITALS: BP 189/96; PULSE 82; RESP 16; TEMP 36.6; O2SAT 98
[2020-07-17 12:07] VITALS: BP 169/97
[2020-07-17] MEDS: hyDRALAzine 20 mg/mL INJ 1 mL 5 MG IVP (12:40)
--- NOTE | 2020-07-17 14:21 | PC.NURSE ---
Pt left with [facility] transportation to [facility].
[2020-07-17 14:22] VITALS: BP 169/97; PULSE 82; RESP 16; TEMP 36.6; O2SAT 98
--- NOTE | 2020-07-17 17:56 | P.DS_ITS ---
Discharge Providers Date of Admission: 07/13/20 07:29 Date of Discharge: July 17, 2020 Attending Provider at Admission: Bladimir Gay MD Attending Provider at Discharge: Angie Henry MD Primary Care Provider: Cindy Fisher MD Diagnoses at Discharge Discharge Diagnosis (1) Acute encephalopathy: Status: Acute (2) History of stroke: Status: Acute (3) Hyperlipidemia: Status: Acute (4) S/P CABG (coronary artery bypass graft): Status: Acute (5) Cystitis: Status: Acute (6) HTN (hypertension) with goal to be determined: Status: Acute (7) CAD (coronary artery disease): Status: Acute (8) DARNELL (acute kidney injury): Status: Acute (9) Elevated troponin: Status: Acute (10) Type 2 diabetes mellitus: Status: Acute Reason for Visit Reason for Visit: [facility] Hospital Course Discharge Summary: Patient is a 70-year-old lady with a past medical history of diabetes mellitus, hypertension, hyperlipidemia, left-sided CVA with residual right hemiparesis, history of CAD history of CABG, diastolic heart failure, CKD stage III, hypertension, dementia, hypothyroidism who presented to [facility] from [facility] due to confusion. Hospital course as noted below. (1) Acute encephalopathy: -Rapid COVID negative -RT-PCR COVID negative -UA positive for ketones, blood, leukocyte Estrace, WBCs, bacteria, treated as inpatient with a course of Primaxin and transitioned to levofloxacin upon discharge. -Abdominal CT shows bilateral nephrolithiasis without urinary tract obstruction -Chest x-ray shows right hemidiaphragmatic elevation, no focal pneumonia -Head CT shows prominent bilateral ICA calcifications, some numerous foci of old ischemia, cerebral atrophy -leukocytosis resolved -Pro-Agusto 42.08 upon admission -TSH 1.29 - urine cx with no growth to date -no acute events on telemetry (2) History of stroke: patient has a known h/o R side CVA in 2019 since which time she has been at the [place]. Ct head shows multiple strokes, multiple foci of old ischemis in various locations which is suspicious for embolic stroke some of which appear to be new since the last scan in 2019. TTE without any vegetations or clots carotid duplex with 50-69% stenosis on right and <50% stenosis on left side Possible that more recent decline in mentation and severity of aphasia may be related to recurrent old infarcts Unable to discuss ALEYDA with patient due to aphasia, uncertain as to her level of understanding, discussed with her who wishes to hold off ant invasive investigations. Given that she is having multiple strokes on ASA and Plavix and possibilituy of embolic events cannot be excluded, i discussed with the patient's the option of trying a combination of antiplatelets and anticoagulants to which he is amenbale. In keeping this test I will discharge her on Plavix 75 and Eliquis 2.5 mg p.o. twice daily. He has been counselled regarding possible side efefcts including hemorrhage and is agreeable to proceed. It is unlikely that swicthing these medications will help recover any lost neurological function but may be helpful in preventing future events. She is a NH resident, does not ambulate much and as such not a high fall risk. 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 Management^: Rodas: Cath Placed During This Visit: yes, but has since been removed by the nurse Reason for Continuing Indwelling Catheter: Decision to DC Catheter Urinary Catheter Date of Insertion: 07/13/20 Urinary Catheter Time of Insertion: 05:49 Date Urinary Catheter Removed: 07/17/20 Time Urinary Catheter Discontinued: 13:00 Discharge Data Data Completed and Pending: Completed Studies During Hospitalization Category Date Time Status CT abdomen pelvis wo con [id number] Urge nt Cat Scan 07/13/20 07:[address] head wo con* 7 0450 Stat Cat Scan 07/13/20 03:09 Completed XR chest 1V adelina ble [id number] Stat Exams 07/13/20 03:09 Completed CV carotid duplex BI* [id number] Routine Ultrasound 07/15/20 22:59 Completed CV echo complete* [id number] Routine Ultrasound 07/15/20 22:59 Completed Pending at discharge Category Date Time Status Blood Culture Sta t Lab 07/13/20 03:09 Results Blood Culture Sta t Lab 07/13/20 10:53 Results Interleukin 6 (IL -6) Serum Stat Lab 07/13/20 10:53 Received Labs from last 24 hours 07/17/20 07/17/20 07/17/20 10:26 06:15 04:33 WBC RBC Hgb Hct MCV MCH MCHC RDW Plt Count MPV Neut % (Auto) Lymph % (Auto) [place] % (Auto) Eos % (Auto) Baso % (Auto) Neut # (Auto) Lymph # (Auto) [place] # (Auto) Eos # (Auto) Baso # (Auto) Nucleated RBC % (a uto) Nucleated RBCs # PT 14.10 INR 1.06 Sodium Potassium Chloride Carbon Dioxide Anion Gap BUN Creatinine GFR Calculation Glucose POC Glucose 127 118 Calculated Osmolal ity Calcium Total Bilirubin AST ALT Alkaline Phosphata se Total Protein Albumin Globulin 07/17/20 07/17/20 07/16/20 04:33 04:33 21:05 WBC 12.6 H RBC 4.69 Hgb 13.1 Hct 41.7 MCV 88.9 MCH 27.9 L MCHC 31.4 RDW 13.5 Plt Count 190 MPV 10.4 Neut % (Auto) 74.7 Lymph % (Auto) 17.2 [place] % (Auto) 6.5 Eos % (Auto) 0.2 Baso % (Auto) 0.3 Neut # (Auto) 9.43 H Lymph # (Auto) 2.2 [place] # (Auto) 0.8 Eos # (Auto) 0.0 Baso # (Auto) 0.0 Nucleated RBC % (a uto) 0 Nucleated RBCs # 0.0 PT INR Sodium 141 Potassium 3.9 Chloride 108 H Carbon Dioxide 21 L Anion Gap 15.9 BUN 25 H Creatinine 0.9 GFR Calculation 61.9 L Glucose 134 H POC Glucose 119 Calculated Osmolal ity 291 Calcium 8.9 Total Bilirubin 0.3 AST 11 ALT 7 Alkaline Phosphata se 69 Total Protein 6.6 Albumin 3.2 L Globulin 3.4 Vitals: Last Vital Signs Temp 97.8 F 07/17/20 14:22 Pulse 82 07/17/20 14:22 Resp 16 07/17/20 14:22 BP 169/97 07/17/20 14:22 Pulse Ox 98 07/17/20 14:22 Discharge Plan Discharge Patient Disposition: Xfer SNF Condition: Stable Prescriptions: New citalopram 20 mg Tablet 10 mg PO DAILY Qty: 0 RF: 0 amlodipine 10 mg Tablet 10 mg PO DAILY 30 Days Qty: 30 RF: 0 hydralazine 10 mg Tablet 10 mg PO TID 30 Days Qty: 90 RF: 0 Eliquis 5 mg Tablet 2.5 mg PO BID 30 Days Qty: 60 RF: 0 levofloxacin 750 mg tablet 750 mg PO DAILY 2 Days RF: 0 Continued gabapentin 300 mg capsule 300 mg PO QDAY RF: 0 potassium chloride 20 mEq tablet extended release 20 meq PO DAILY RF: 0 Enema 19-7 gram/118 mL enema 118 ml NE ONCE PRN (Reason: Constipation) RF: 0 bisacodyl 10 mg suppository 10 mg NE QDAY PRN (Reason: CONSTIPATED) RF: 0 lisinopril 10 mg tablet 10 mg PO DAILY RF: 0 nitroglycerin [Nitrostat] 0.4 mg tablet, sublingual 0.4 mg SUBLINGUAL DIRECTED PRN (Reason: Chest Pain) RF: 0 clopidogrel [Plavix] 75 mg tablet 75 mg PO DAILY RF: 0 levothyroxine 88 mcg capsule 88 mcg PO DAILY RF: 0 sennosides 8.6 mg Tablet 8.6 mg PO BID RF: 0 acetaminophen 325 mg Tablet 650 mg PO DAILY PRN (Reason: Pain) RF: 0 Milk of Magnesia 400 mg/5 mL Suspension 400 mg PO DAILY PRN (Reason: Constipation) RF: 0 Epsom Salt 100 % Crystals 1 applic TOPICAL BID RF: 0 Novolog Flexpen U-100 Insulin 100 unit/mL (3 mL) insulin pen See Rx Instructions .ROUTE .COMPLEX RF: 0 Probiotic (S.boulardii) 250 mg Capsule 250 mg PO BID RF: 0 Lantus Solostar U-100 Insulin 100 unit/mL (3 mL) insulin pen See Rx Instructions .ROUTE .COMPLEX RF: 0 Pro-Stat AWC 17-100 gram-kcal/30 mL Liquid See Rx Instructions .ROUTE .COMPLEX RF: 0 Changed simvastatin 40 mg tablet 20 mg PO BEDTIME 30 Days Qty: 0 RF: 0 Discontinued aspirin [Adult Low Dose Aspirin] 81 mg tablet,delayed release (DR/EC) 81 mg PO DAILY RF: 0 Discharge Orders: Discharge Order (Routine); Ordered 07/17/20 Ordered By: Angie Henry Referrals: Cindy Fisher MD [Primary Care Provider] - 07/25/20 10:30 am (You have an appointment on July 25 at 10:30 with Dat Chavez NP) Discharge Diet: Soft Mechanical Discharge Activity: As per PT/OT instructions Patient Instructions: Type 2 Diabetes, Diabetes and Diet, Hydralazine (By mouth), Amlodipine (By mouth), Levofloxacin (By mouth), Citalopram (By mouth), Apixaban (By mouth), Acute Kidney Injury (DC) Discharge Date/Time: 07/17/20 14:25 Discharge Attestations Time Spent in Discharge Care*: less than 30 min Quality Metrics Clinical Quality Measures During this hospital stay, did patient experience: None Coding Level of Care Code 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
[2020-07-17 19:16] LABS: Interleukin 6 (IL-6) Serum 35.39 pg/mL (<5.00)
== END 2020-07-17 14:25 | disposition skilled nursing facility (03) | DRG 690 ==
LOC: ER 07:45 → MEDSURG 08:02
PROVIDERS: Emergency Medicine; Family Medicine; Admitting Provider Family Medicine; PCP Internal Medicine; Visit Provider Student in an Organized Health Care Education/Training Program
DX: N30.00 Acute cystitis without hematuria (principal); G93.40 Encephalopathy, unspecified; N17.9 Acute kidney failure, unspecified; I13.0 Hypertensive heart and chronic kidney disease with heart failure and stage 1 through stage 4 chronic kidney disease, or unspecified chronic kidney disease; I69.351 Hemiplegia and hemiparesis following cerebral infarction affecting right dominant side; I50.30 Unspecified diastolic (congestive) heart failure; Z66 Do not resuscitate; E78.5 Hyperlipidemia, unspecified; I25.10 Atherosclerotic heart disease of native coronary artery without angina pectoris; Z95.1 Presence of aortocoronary bypass graft; E11.22 Type 2 diabetes mellitus with diabetic chronic kidney disease; N18.3 Chronic kidney disease, stage 3 (moderate); E03.9 Hypothyroidism, unspecified; Z20.828 Contact with and (suspected) exposure to other viral communicable diseases; Z79.02 Long term (current) use of antithrombotics/antiplatelets; Z79.4 Long term (current) use of insulin; Z79.82 Long term (current) use of aspirin; B96.20 Unspecified Escherichia coli [E. coli] as the cause of diseases classified elsewhere; B96.4 Proteus (mirabilis) (morganii) as the cause of diseases classified elsewhere; M19.90 Unspecified osteoarthritis, unspecified site; K21.9 Gastro-esophageal reflux disease without esophagitis; E11.51 Type 2 diabetes mellitus with diabetic peripheral angiopathy without gangrene; F01.50 Vascular dementia, unspecified severity, without behavioral disturbance, psychotic disturbance, mood disturbance, and anxiety; G47.30 Sleep apnea, unspecified; E11.40 Type 2 diabetes mellitus with diabetic neuropathy, unspecified; Z87.891 Personal history of nicotine dependence
CPT/HCPCS: 12345; 36415; 36416; 36600; 51702; 70450; 71045; 74176; 80053; 80061; 81001; 82009; 82728; 82803; 82962; 83036; 83520; 83605; 83615; 83735; 83880; 84100; 84145; 84443; 84484; 85025; 85378; 85384; 85610; 86140; 87040; 87086; 87635; 87804; 93005; 93306; 93880; 94664; 96372; 96375; 97110; 97116; 97161; 97166; 97530; 97535; 99284; J0360; J0610; J0743; J1650; J1815; J7030